=== PATIENT | female | born 1955 | race Caucasian/White ===

== ENCOUNTER → 2018-09-13 | Outpatient (CLI) | payer MEDICARE, OTHER ==
[~2018-09-13] VITALS: Ht 157.5 cm; Wt 85.7 kg
[~2018-09-13] MED LIST: ALLO100T GT; CATHETER FLUSH 10 ML SYR IV PRN; CEFU250T PO; CIPR500T78 PO; DILT120C PO; DILT120C17 PO; DILT240C87 PO; FAMC250T2 PO; HYDR12.570 PO; HYDR25TA4 PO; HYOS0.1216 PO; LISI2.5T56 PO; LISI2.5T85 PO; MELO-195 PO; NITR-33 PO; ONDA-42 SL; OXYC-12 PO; PHEN-640 PO; PHEN200T27 PO; POTA10TA17 PO; POTA2TAB15 PO; PRAV40TA PO; PRED10TA PO; REGADENOSON 0.4 MG/5 ML SYR (LEXISCAN) IV ONE
[2018-09-13 11:27] LABS: BASOPHILS % (AUTO) 0 % (0-10); EOSINOPHILS % (AUTO) 0 % (0-10); HEMATOCRIT 42 % (35-52); HEMOGLOBIN 13.9 G/DL (11.5-16.0); LYMPHOCYTES # (AUTO) 2.9 X 10^3 (1.0-4.0); LYMPHOCYTES % (AUTO) 27 % (12-44); MEAN CORPUSCULAR HEMOGLOBIN 30 PG (25-34); MEAN CORPUSCULAR HGB CONC 33 G/DL (32-36); MEAN CORPUSCULAR VOLUME 90 FL (80-99); MEAN PLATELET VOLUME 10.6 FL (7.4-10.4); MONOCYTES # (AUTO) 0.7 X 10^3 (0.0-1.0); MONOCYTES % (AUTO) 7 % (0-12); NEUTROPHILS # (AUTO) 7.1 X 10^3 (1.8-7.8); NEUTROPHILS % (AUTO) 66 % (42-75); PLATELET COUNT 226 10^3/uL (130-400); RED BLOOD COUNT 4.71 10^6/uL (4.35-5.85); RED CELL DISTRIBUTION WIDTH 13.9 % (10.0-14.5); WHITE BLOOD COUNT 10.8 10^3/uL (4.3-11.0)
[2018-09-13 11:50] LABS: ALBUMIN 4.5 GM/DL (3.2-4.5); BILIRUBIN,TOTAL 0.6 MG/DL (0.1-1.0); CALCIUM 9.6 MG/DL (8.5-10.1); CREATININE SERUM 1.08 MG/DL (0.60-1.30); MAGNESIUM 2.4 MG/DL (1.8-2.4); POTASSIUM 3.8 MMOL/L (3.6-5.0); TOTAL PROTEIN 7.1 GM/DL (6.4-8.2)
[2018-09-13 12:03] LABS: ERYTHROCYTE SEDIMENTATION RATE 4 MM/HR (0-30)
[2018-09-13 13:17] VITALS: BP 152/103
[2018-09-13 13:23] VITALS: BP 159/107
--- NOTE | 2018-09-14 09:09 | STRESS TEST ---
DATE OF SERVICE: 09/13/2018 RESTING AND POST REGADENOSON TECHNETIUM-99M TETROFOSMIN SPECT CT IMAGING ORDERING PHYSICIAN: Dr. Lieberman. FAMILY PHYSICIAN: Dr. Preston. CLINICAL DIAGNOSIS: Chest discomfort. Baseline images were carried out after injection of 10.14 mCi of technetium-99 Tetrofosmin. This was followed by 0.4 mg regadenoson and 28.4 mCi technetium-99m Tetrofosmin for stress imaging. The electrocardiogram showed sinus rhythm at baseline and it did not change significantly with the regadenoson infusion. The patient noted some headache, abdominal discomfort and heaviness in her legs following regadenoson infusion. These symptoms resolved in a few minutes. Review of images at rest and following stress indicates a small transient apical perfusion defect. Gated images show normal global left ventricular systolic function with normal regional wall motion. Left ventricular ejection fraction is calculated to be 64%. Left ventricular end diastolic volume is 34 mL. TID is absent (0.86). CONCLUSIONS: 1. The study is indicative of a small amount of apical ischemia. 2. Normal regional wall motion. 3. Normal global left ventricular systolic function with a calculated ejection fraction of 64%. Job ID: [id number] DocumentID: [id number] Dictated Date: 09/14/2018 08:33:48 Head Grower Date: 09/14/2018 09:09:23 Dictated By: DEBBIE LIEBERMAN MD, MA, FACP, FACC,
== END ==
LOC: RAD 10:43
PROVIDERS: ATTEND Internal Medicine Cardiovascular Disease
DX: I12.9 Hypertensive chronic kidney disease with stage 1 through stage 4 chronic kidney disease, or unspecified chronic kidney disease (principal); N18.3 Chronic kidney disease, stage 3 (moderate); I70.213 Atherosclerosis of native arteries of extremities with intermittent claudication, bilateral legs; E78.49 Other hyperlipidemia; R06.02 Shortness of breath; R07.89 Other chest pain
CPT/HCPCS: 36415; 78452; 80053; 80061; 83735; 84443; 85025; 85652; 93017; 93923

== ENCOUNTER 2018-10-04 07:02 | Day surgery (SDC) | payer MEDICARE, OTHER ==
[~2018-10-04] VITALS: Ht 157.5 cm; Wt 86.2 kg
[2018-10-04] VITALS (11 sets, daily range): BP systolic 131–172; BP diastolic 68–89
[~2018-10-04 07:02] MED LIST changes: -CATHETER FLUSH 10 ML SYR IV PRN; -REGADENOSON 0.4 MG/5 ML SYR (LEXISCAN) IV ONE
--- OUTSIDE RECORDS SUMMARY | 2018-10-04 07:05 | XMS REPORT ---
Author Author RUSS MENESES [facility] eClinicalWorks Address Unknown Phone Unavailable Care Team Providers Care Appliance Repairer Name Role Phone RUSS MENESES CP Unavailable Allergies No Known Allergies Problems Problem Type Condition Code Onset Dates Condition Status Problem Diseases of tricuspid valve 397.0 Active Problem Benign paroxysmal positional vertigo 386.11 Active Problem Cardiomegaly 429.3 Active Problem Chest discomfort 786.59 Active Problem Special screening examination, human papillomavirus [HPV] V73.81 Active Problem Hyperlipemia 272.4 Active Problem Hypertension 401.9 Active Problem Benign neoplasm of skin of other and unspecified parts of face 216.3 Active Problem Other follow-up examination V67.59 Active Problem Unspecified essential hypertension 401.9 Active Problem Other and unspecified hyperlipidemia 272.4 Active Problem Benign neoplasm of skin, site unspecified 216.9 Active Problem Other specified disorders of liver 573.8 Active Problem Screening for malignant neoplasm of the cervix V76.2 Active Problem Unspecified breast screening V76.10 Active Problem Actinic keratosis 702.0 Active Problem Acute bronchitis 466.0 Active Problem Special screening for malignant neoplasms, colon V76.51 Active Problem Acute maxillary sinusitis 461.0 Active Problem Nonspecific abnormal electrocardiogram (ECG) (EKG) 794.31 Active Problem Mitral valve disorders 424.0 Active Medications No Known Medications Results No Known Results Summary Purpose eClinicalWorks Submission
[2018-10-04] MEDS ORDERED: LIDOCAINE 1% INJ 20 ML 20 ML VIAL ONE (07:06)
--- OUTSIDE RECORDS SUMMARY | 2018-10-04 07:06 | XMS REPORT ---
Author Author VERNA BARTH [facility] eClinicalWorks Address Unknown Phone Unavailable Care Team Providers Care Automation Software Engineer Name Role Phone VERNA BARTH CP Unavailable Allergies, Adverse Reactions, Alerts Substance Reaction Event Type Tramadol HCl nausea Drug Allergy Problems Problem Type Condition Code Onset Dates Condition Status Problem Acute maxillary sinusitis 461.0 Active Assessment History of kidney stones Z87.442 Active Problem Mitral valve disorders 424.0 Active Assessment Acute left flank pain R10.9 Active Problem Diseases of tricuspid valve 397.0 Active Problem Benign paroxysmal positional vertigo 386.11 Active Problem Cardiomegaly 429.3 Active Problem Chest discomfort 786.59 Active Problem Hyperlipemia 272.4 Active Problem Special screening examination, human papillomavirus [HPV] V73.81 Active Assessment Insect bites W57.XXXA Active Problem Hypertension 401.9 Active Assessment Tinea pedis B35.3 Active Problem Benign neoplasm of skin of [...] for malignant neoplasms, colon V76.51 Active Problem Nonspecific abnormal electrocardiogram (ECG) (EKG) 794.31 Active Medications Medication Code System Code Instructions Start Date End Date Status Dosage Lisinopril [facility] [address]-63 2.5 MG Orally Once a day 1 tablet Cardizem CD [facility] [address]-34 120 MG Orally Once a day May 01, 2015 1 capsule PredniSONE [facility] [address]-62 40 mg Orally Once a day Aug 30, 2015 Sep 04, 2015 1 tablet with food or milk Procedures Procedure Coding System Code Date URINALYSIS, AUTO, W/O SCOPE CPT-4 30837 Aug 30, 2015 Office Visit, Est Pt., Level 3 CPT-4 70785 Aug 30, 2015 Vital Signs Date/Time: Aug 30, 2015 Temperature 97.4 F Weight 167 lbs Height 62 in BMI 30.54 Index Blood Pressure Diastolic 72 mmHg Blood Pressure Systolic 130 mmHg Cardiac Monitoring Heart Rate 80 bpm Results No Known Results Summary Purpose eClinicalWorks Submission
[2018-10-04] MEDS ORDERED: NS IV 1000 ML 1,000 ML ONE ×2 (07:07→10:01)
[2018-10-04] MEDS ORDERED: HEParin (CATH LAB) 2,000 ML IV ONE (07:07)
[2018-10-04 07:48] LABS: HEMOGLOBIN 13.1 G/DL (11.5-16.0); MEAN PLATELET VOLUME 10.5 FL (7.4-10.4); RED BLOOD COUNT 4.32 10^6/uL (4.35-5.85); RED CELL DISTRIBUTION WIDTH 14.1 % (10.0-14.5); WHITE BLOOD COUNT 5.7 10^3/uL (4.3-11.0)
[2018-10-04] MEDS: NS IV 1000 ML 1,000 ML IV SCH ×2 (07:56→10:21)
[2018-10-04 08:06] LABS: ALBUMIN 4.2 GM/DL (3.2-4.5); BILIRUBIN,TOTAL 0.4 MG/DL (0.1-1.0); CALCIUM 9.1 MG/DL (8.5-10.1); CREATININE SERUM 1.04 MG/DL (0.60-1.30); POTASSIUM 4.1 MMOL/L (3.6-5.0); TOTAL PROTEIN 6.7 GM/DL (6.4-8.2)
[2018-10-04 08:11] LABS: INR 0.9 (0.8-1.4); PROTHROMBIN TIME PATIENT 12.6 SEC (12.2-14.7)
[2018-10-04] MEDS ORDERED: CARV25TA PO (08:24)
[2018-10-04] MEDS ORDERED: ASPI-586 PO (08:24)
[2018-10-04] MEDS ORDERED: DILT240C87 PO (08:25)
[2018-10-04] MEDS ORDERED: LISI40TA PO (08:25)
[2018-10-04] MEDS ORDERED: CHOL400T29 PO (08:26)
[2018-10-04] MEDS ORDERED: FLU QUADRIvalent (5+ YOA) 2018-2019 (AFLURIA) 0.5 ML IM ONE (08:30)
[2018-10-04] MEDS ORDERED: MIDAZOLAM 5 MG/5 ML (VERSED) VIAL ONE (09:40)
[2018-10-04] MEDS ORDERED: fentaNYL INJECTION 100 MCG/2 ML AMP ONE (09:40)
--- NOTE | 2018-10-04 10:14 | Cardiac Procedure Note-CS/ASA ---
Pre-Procedure Note Pre-Op Procedure Note H&P Reviewed The H&P was reviewed, patient examined and no changes noted. Date H&P Reviewed: Oct 04, 2018 Time H&P Reviewed: 10:14 Conscious Sedation Pre-Proced Time 10:14 ASA Score 3 For ASA 3 and 4: Consider anesthesia and medical clearance. Also, for patients with a history of failed moderate sedation consider anesthesia. Airway Lungs Heart ASA score ASA 1: a normal healthy patient ASA 2: a patient with a mild systemic disease (mid diabetes, controlled hypertension, obesity ASA 3: a patient with a severe systemic disease that limits activity (angina , COPD, prior Myocardial infarction) ASA 4: a patient with an incapacitating disease that is a constant threat to life (CHF, renal failure) ASA 5: a moribund patient not expected to survive 24 hrs. (ruptured aneurysm) ASA 6: a declared brain patient whose organs are being harvested. For emergent operations, add the letter E after the classification Mallampati Classification Grade 2 Sedation Plan Analgesia, Amnesia, Plan communicated to team members, Discussed options with patient/fam, Discussed risks with patient/fam The patient is an appropriate candidate to undergo the planned procedure, sedation, and anesthesia. The patient immediately re-assessed prior to indication. DEBBIE JAMISON MD FACP FAC CCDS Oct 04, 2018 10:14
[2018-10-04] MEDS ORDERED: NS IV 1000 ML 1,000 ML IV SCH (10:33)
--- NOTE | 2018-10-04 10:36 | Discharge Inst-Post CATH ---
Discharge Inst-CATH Post Cardiac Cath D/C Inst Follow Up/Plan F/u with Dr Lieberman in 2 weeks CARDIAC CATH DISCHARGE INSTRUCTIONS *Hold Metformin for 48 hours post heart cath. ACTIVITY * Go Home directly and rest. * Limit activity of the leg (or wrist if it was used) for 7 days including aerobics, swimming, jogging, bicycling, etc. * Restrict stair-climbing for 7 days if possible, if not, climb up with your non -cath leg, then bring together on the same step. * Avoid lifting, pushing, pulling or excessive movement of the affected extremity for 7 days. * Customary sexual activity may be resumed after 2 days-use caution not to use a position that strains or causes pain to the affected extremity. * No driving for 24 hours. * NO SMOKING. * Avoid straining for bowel movements for 7 days. * Gentle walking on level ground is allowed. * Returning to work will depend on the type of procedure and the results. Your doctor will discuss this with you. CALL YOUR DOCTOR FOR ANY OF THE FOLLOWING: *If bleeding from the puncture site occurs- Apply gentle pressure to site with clean cloth and call your doctor or EMS. * If a knot or lump forms under the skin, increases in size, or causes pain. * If bruising appears to be worsening or moving further down your leg instead of disappearing. * Temperature above 101 F. CARE OF YOUR GROIN INCISION; * Bruising or purple discoloration of the skin near the puncture site is common. * You may shower only, no bathtub bathing for 5 days. Be careful to avoid slipping as your leg may feel stiff. * If a closure device was used on your femoral artery, please see the attached guide regarding care of the device and your leg. * Leave the dressing on, until removed by office staff. CARE OF YOUR WRIST INCISION; * Bruising or purple discoloration of the skin near the puncture site is common. * You may shower. * DO NOT submerge wrist. * Leave dressing on, until removed by office staff.. DEBBIE LIEBERMAN MD [facility] CCDS Oct 04, 2018 10:36
--- NOTE | 2018-10-04 10:36 | Discharge Inst-Cardiology ---
Discharge Inst-Cardiac Discharge Medications Continued Medications: Aspirin (Aspir 81) 81 Mg Tablet.dr 81 MG PO DAILY, TAB Carvedilol (Carvedilol) 25 Mg Tablet 25 MG PO DAILY, TAB Cholecalciferol (Vitamin D3) (Vitamin D-400) 400 Unit Tablet 400 UNIT PO DAILY, TAB Diltiazem HCl (Diltiazem ER) 240 Mg Capsule.er 240 MG PO DAILY, CAP Lisinopril (Lisinopril) 40 Mg Tablet 40 MG PO DAILY, TAB Orders-Post D/C & Referrals Pneu Vac Indicated: Yes DEBBIE JAMISON MD FACP FACC CCDS Oct 04, 2018 10:36
[2018-10-04] MEDS ORDERED: PATIENT MAY USE OWN MEDS, ALL PO SCH (10:45)
--- NOTE | 2018-10-04 13:20 | CARDIAC CATHETERIZATION ---
DATE OF SERVICE: 10/04/2018 CARDIAC CATHETERIZATION REPORT The patient is a 63-year-old lady, who has multiple coronary artery disease risk factors and has symptoms of chest discomfort and loss of stamina, who has had an abnormal myocardial perfusion study that indicated apical ischemia. Cardiac catheterization was carried out today after having obtained an informed consent. PROCEDURE: She was brought to the cardiac catheterization laboratory in a fasting state. Right groin was prepared and draped in the usual sterile fashion. Lidocaine 1% was used for local anesthesia. Modified Seldinger technique used to advance a 5-Romanian sheath in the right femoral artery. Angiography of the right femoral artery was carried out through the sheath. A 5-Romanian JL4 catheter was used for right coronary angiography and 5-Romanian JL3.5 catheter was used for left coronary angiography. A 5-Romanian pigtail catheter was used for left heart catheterization and left ventricular angiography. The pigtail was pulled back to the aortic arch and aortic arch angiography was performed. Diagnostic catheters were removed. Mynx was used to achieve hemostasis. She tolerated the procedure well. HEMODYNAMICS: Left ventricular end-diastolic pressure following coronary angiography was 12 mmHg. There was no significant pressure gradient on pullback across the aortic valve. Ascending aortic pressure is 97/56 with a mean of 58 mmHg. CORONARY ANGIOGRAPHY: Left main coronary, left circumflex, left anterior descending, right coronary artery are all angiographically free of any significant disease. Right coronary artery is dominant. LEFT VENTRICULAR ANGIOGRAPHY: Left ventricular angiography was carried out in the right anterior oblique projection. Global left ventricular systolic function was normal. No regional wall motion abnormalities were seen. There does not appear to be significant mitral regurgitation. Left ventricular ejection fraction is approximately 60%. AORTIC ARCH ANGIOGRAPHY: Aortic arch angiography did not indicate any significant thoracic aortic aneurysm or dissection. Neck arteries, to the extent visualized, do not exhibit significant obstructive disease. CONCLUSIONS: 1. No angiographically significant coronary artery disease. 2. Normal global left ventricular systolic function with an ejection fraction of 60%. 3. Normal left ventricular end-diastolic pressure. DISCUSSION AND RECOMMENDATIONS: Based on the results of the study, chest discomfort does not appear to be of cardiac origin. Myocardial perfusion imaging appears to have been false positive. Continued risk factor modification is advised. Outpatient followup is advised. Job ID: [id number] DocumentID: [id number] Dictated Date: 10/04/2018 10:30:39 Electric Motor Controls Assembler Date: 10/04/2018 13:20:08 Dictated By: DEBBIE JAMISON MD, MA, FACP, FACC,
== END 2018-10-04 14:02 | disposition home or self-care (01) ==
LOC: CATH 07:02 → SDC 10:52 → CATH 14:02
PROVIDERS: ATTEND Internal Medicine Cardiovascular Disease
DX: R07.9 Chest pain, unspecified (principal); Z79.899 Other long term (current) drug therapy; Z79.82 Long term (current) use of aspirin; I10 Essential (primary) hypertension; E78.5 Hyperlipidemia, unspecified; E66.9 Obesity, unspecified; Z68.35 Body mass index [BMI] 35.0-35.9, adult
CPT/HCPCS: 36221; 36415; 80053; 80061; 85027; 85610; 85730; 87081; 93458

== ENCOUNTER → 2018-10-06 | Outpatient (CLI) | payer MEDICARE, OTHER ==
[~2018-10-06] MED LIST changes: +ASPI-586 PO; +CARV25TA PO; +CHOL400T29 PO; +LISI40TA PO
== END ==
LOC: CARD 13:59
PROVIDERS: ATTEND Internal Medicine Cardiovascular Disease
DX: R07.89 Other chest pain (principal); I12.9 Hypertensive chronic kidney disease with stage 1 through stage 4 chronic kidney disease, or unspecified chronic kidney disease; E78.5 Hyperlipidemia, unspecified; N18.3 Chronic kidney disease, stage 3 (moderate); R06.02 Shortness of breath; I70.213 Atherosclerosis of native arteries of extremities with intermittent claudication, bilateral legs; I08.0 Rheumatic disorders of both mitral and aortic valves
CPT/HCPCS: 93306

== ENCOUNTER 2020-06-27 13:06 | Emergency (ER) | payer MEDICARE, OTHER ==
[~2020-06-27] VITALS: Ht 157.5 cm; Wt 83.9 kg
[2020-06-27 13:18] VITALS: BP 143/91
--- NOTE | 2020-06-27 14:11 | ED Upper Extremity ---
General Chief Complaint: Upper Extremity Stated Complaint: LUMP ON ELBOW Nursing Triage Note: PT AMB TO TRIAGE WITH COMPLAINT OF KNOT ON RIGHT ELBOW. STATES NOTICED IT TODAY WHEN SHE SAT HER ELBOW ON THE CONSOLE OF CAR. Nursing Sepsis Screen: No Definite Risk (THOMAS LAIRD) History of Present Illness Date Seen by Provider: Jun 27, 2020 Time Seen by Provider: 13:26 Initial Comments This is a 65 who presents to the ED with "2-3 day" hx of focal swelling to R elbow. States the lesion started as a small nodule on extensor surface of her elbow but today she notice it was numb and more swollen after she sat her arm down on the console of her car. Denies F, chills, myalgias, or any other sx. Denies reduction in AROM or pain w/ movement of elbow. Denies any recent hx of lacerations/abrasions, bites, puncture, or stings to that area. Denies exposure to any thorny, or poisonous plants. Denies any recent falls. Is not on blood thinners. Denies hx of gout. Pt has hx of CKD and does not take NSAIDs. Onset: other (3days ago) Severity: mild Pain/Injury Location: right elbow Method of Injury: other (none) Modifying Factors: Improves With Other (none) (THOMAS LAIRD) Severity: mild Pain/Injury Location: right elbow Method of Injury: other (none) Modifying Factors: Improves With Other (none) (CARMEN ALVARENGA MD) Allergies and Home Medications Allergies Coded Allergies: tramadol (Verified Adverse Reaction, Mild, N/V, 05/14/15) Home Medications Aspirin 81 Mg Tablet.dr, 81 MG PO DAILY, (Reported) Carvedilol 25 Mg Tablet, 25 MG PO DAILY, (Reported) Cholecalciferol (Vitamin D3) 400 Unit Tablet, 400 UNIT PO DAILY, (Reported) Diltiazem HCl 240 Mg Capsule.er, 240 MG PO DAILY, (Reported) Lisinopril 40 Mg Tablet, 40 MG PO DAILY, (Reported) Patient Home Medication List Home Medication List Reviewed: Yes (CARMEN ALVARENGA MD) Review of Systems Constitutional: No chills, No fever, No malaise, No weakness Respiratory: no symptoms reported Cardiovascular: no symptoms reported Musculoskeletal: joint swelling (R elbow swelling); No muscle pain Skin: No change in color, No pruritus, No rash (THOMAS LAIRD) Constitutional: No chills, No fever Respiratory: no symptoms reported Cardiovascular: no symptoms reported Musculoskeletal: No joint pain; joint swelling (R elbow swelling); No muscle pain Skin: No change in color; lumps (CARMEN ALVARENGA MD) Past Pcunepv-Pzylfw-Hrucjx Hx Past Med/Social Hx: Reviewed Nursing Past Med/Soc Hx (CARMEN ALVARENGA MD) Patient Social History Alcohol Use: Regular Use Alcohol Beverage of Choice: Beer Recreational Drug Use: No Smoking Status: Former Smoker Recent Foreign Travel: No Contact w/Someone Who Travel: No Recent Infectious Disease Expo: No (THOMAS LAIRD) Immunizations Up To Date Tetanus Booster (TDap): Unknown PED Vaccines UTD: Yes (THOMAS LAIRD) Seasonal Allergies Seasonal Allergies: No (THOMAS LAIRD) Past Medical History Appendectomy, Tubal Ligation Hypertension Reproductive Disorders: No BOTTLE TESTER History: Tubal Ligation Kidney Stones (THOMAS LAIRD) Family Medical History Reviewed Nursing Family Hx (CARMEN ALVARENGA MD) Completed stroke 19 MOTHER Diabetes mellitus 19 FATHER 19 MOTHER Physical Exam Vital Signs Vital Signs - First Documented 06/27/20 13:18 Temp 36.9 Pulse 61 Resp 20 B/P (MAP) 143/91 (108) Pulse Ox 97 O2 Delivery Room Air (CARMEN ALVARENGA MD) Vital Signs Capillary Refill : Less Than 3 Seconds (THOMAS LAIRD) Height, Weight, BMI Height: 5'2.00" Weight: 190lbs. 0.0oz. 86.032904kr; 33.00 BMI Method:Stated General Appearance: WD/WN, no apparent distress Cardiovascular: normal peripheral pulses, regular rate, rhythm Respiratory: chest non-tender, lungs clear, normal breath sounds Shoulder: normal inspection, non-tender Elbow/Forearm: non-tender, normal ROM, swelling (there is a ping pong ball- sized localized swelling over extensor surface of R elbow. swelling does not extend up or down length of arm, there is no R elbow: erythema, there is no evidence of disturbance to skin barrier, no sign of infection; R elbow does feel mildly warmer compared to L. No pain w/ ROM. sensation and pulse is intact bilaterally) Wrist: Yes normal inspection, Yes non-tender Hand: normal inspection, non-tender Neurologic/Tendon: normal sensation, normal motor functions, normal tendon functions Neurologic/Psychiatric: alert, oriented x 3 Skin: normal color, warm/dry (THOMAS LAIRD [facility]) General Appearance: WD/WN, no apparent distress Cardiovascular: regular rate, rhythm, no murmur Respiratory: lungs clear, normal breath sounds Elbow/Forearm: normal ROM, Right, swelling (there is a ping pong ball-sized localized swelling over extensor surface of R elbow. swelling does not extend up or down length of arm, there is no R elbow: erythema, there is no evidence of disturbance to skin barrier, no sign of infection; R elbow does feel mildly warmer compared to L. No pain w/ ROM. sensation and pulse is intact bilaterally) Neurologic/Psychiatric: alert, oriented x 3 Skin: normal color, warm/dry (CARMEN ALVARENGA MD) Progress/Results/Core Measures Results/Orders Vital Signs/I&O 06/27/20 13:18 Temp 36.9 Pulse 61 Resp 20 B/P (MAP) 143/91 (108) Pulse Ox 97 O2 Delivery Room Air (CARMEN ALVARENGA MD) Blood Pressure Mean: 108 Progress Progress Note : Progress Note I have seen and evaluated the patient and agree with above except as indicated. I have directed the plan of care. Patient is here with swelling of the bursa of the right elbow. No recent injury. No recent wounds. Has not had this happen before. Admits that she did have been packing approximately 80 bags of groceries last week. Noticed swelling this morning. No limitations of movement. No indication of infected area and seems to be located just in the posterior bursa. I did discuss multiple options with the patient including further evaluation versus conservative management. We all agree that conservative management is a reasonable approach at this point. Ice pack given. Discharged home with return precautions. Patient verbalize understanding instructions and agreement with plan. Patient will return if there is any increase in swelling, pain or signs of inflammation to indicate infection or other concerns as needed. (CARMEN ALVARENGA MD) Departure Impression Primary Impression: Bursitis of right elbow Qualified Codes: M70.31 - Other bursitis of elbow, right elbow Disposition: 01 HOME, SELF-CARE Condition: Stable Departure-Patient Inst. Decision time for Depature: 14:19 (CARMEN ALVARENGA MD) Referrals: TK GÓMEZ DO (PCP/Family) Primary Care Physician Patient Instructions: Bursitis (DC) Add. Discharge Instructions: All discharge instructions reviewed with patient and/or family. Voiced understanding. You may use ice packs to area concern 20 minutes per hour as needed to reduce swelling. Rest the arm and elevate as needed to reduce swelling. You may take Tylenol/acetaminophen 1000 mg every 6-8 hours as needed for pain. Return for worse pain, swelling, redness, fever, red streaks or other concerns as needed. THOMAS LAIRD MED STUD Jun 27, 2020 14:11 CARMEN ALVARENGA MD Jun 27, 2020 14:23
== END 2020-06-27 14:29 | disposition home or self-care (01) ==
LOC: EDUNIT# 13:06 → ER 13:09
DX: M70.31 Other bursitis of elbow, right elbow (principal); I12.9 Hypertensive chronic kidney disease with stage 1 through stage 4 chronic kidney disease, or unspecified chronic kidney disease; N18.9 Chronic kidney disease, unspecified; Z88.5 Allergy status to narcotic agent; Z79.82 Long term (current) use of aspirin; Z87.891 Personal history of nicotine dependence
CPT/HCPCS: 99282

== ENCOUNTER → 2020-07-24 | Outpatient (CLI) | payer MEDICARE, OTHER | LOC: CARD 13:00 | PROVIDERS: ATTEND Internal Medicine Cardiovascular Disease | DX: I25.10 Atherosclerotic heart disease of native coronary artery without angina pectoris (principal); I12.9 Hypertensive chronic kidney disease with stage 1 through stage 4 chronic kidney disease, or unspecified chronic kidney disease; N18.3 Chronic kidney disease, stage 3 (moderate); I34.0 Nonrheumatic mitral (valve) insufficiency; I77.89 Other specified disorders of arteries and arterioles; I47.1 Supraventricular tachycardia; R00.2 Palpitations; E78.5 Hyperlipidemia, unspecified | CPT/HCPCS: 93225; 93226; 93306 ==

== ENCOUNTER → 2020-09-10 | Outpatient (CLI) | payer MEDICARE, OTHER ==
[~2020-09-10] MED LIST changes: +CATHETER FLUSH 10 ML SYR IV PRN; +HOLD METFORMIN - RECEIVED CONTRAST 20 ML VIAL IV SCH; +IOHEXOL 350 MG/ML 100 ML (OMNIPAQUE 350) VIAL IV ONE; +NS 100 ML (IVPB) BAG IV ONE; +NS IV 1000 ML 1,000 ML IV SCH; +NS IV 1000 ML 1,000 ML ONE
[2020-09-10 09:55] VITALS: BP 148/94
[2020-09-10 13:39] LABS: CREATININE SERUM 0.88 MG/DL (0.60-1.30)
--- NOTE | 2020-09-10 15:57 | Diagnostic Imaging Report ---
PROCEDURE: CT abdomen with contrast only. TECHNIQUE: Multiple contiguous axial images were obtained through the abdomen after the administration of intravenous contrast. Auto Exposure Controls were utilized during the CT exam to meet ALARA standards for radiation dose reduction. INDICATION: Liver cyst. COMPARISON: Correlation is made with prior CT from 09/24/2015. FINDINGS: The lung bases are clear. Previously noted dominant right lobe liver cyst has significantly decreased in size, now measuring approximately 1.7 cm compared with 10.1 cm on prior exam. A 2.3 cm cyst in the inferior right lobe is noted compared with 2.0 cm on prior exam. A third cyst more inferiorly in the right lobe measures 2.5 cm compared with 2.1 cm on prior. Gallbladder is unremarkable. No biliary ductal dilatation is seen. The pancreas and spleen are unremarkable. No adrenal mass is detected. Kidneys are unremarkable. Aorta is nonaneurysmal. No central retroperitoneal or mesenteric lymphadenopathy is detected. Bowel loops are unremarkable. There is no ascites. IMPRESSION: Significant decrease in size of dominant right lobe liver cyst when compared with examination from 09/24/2015. Dictated by: Dictated on workstation # [id number]
== END ==
LOC: RAD 09:43
PROVIDERS: ATTEND Nurse Practitioner
DX: Z01.812 Encounter for preprocedural laboratory examination (principal); K76.89 Other specified diseases of liver
CPT/HCPCS: 36415; 74160; 82565; 84520; 96360; 96361

== ENCOUNTER 2022-10-15 19:54 | Emergency (ER) | payer MEDICARE, OTHER ==
[~2022-10-15] VITALS: Ht 157.5 cm; Wt 89.8 kg
[~2022-10-15 19:54] MED LIST changes: -CATHETER FLUSH 10 ML SYR IV PRN; -HOLD METFORMIN - RECEIVED CONTRAST 20 ML VIAL IV SCH; -IOHEXOL 350 MG/ML 100 ML (OMNIPAQUE 350) VIAL IV ONE; -LISI40TA PO; +LISI40TA9 PO; -NS 100 ML (IVPB) BAG IV ONE; -NS IV 1000 ML 1,000 ML IV SCH; -NS IV 1000 ML 1,000 ML ONE
--- NOTE | 2022-10-15 20:09 | ED Chest Pain ---
General Chief Complaint: Cardiac/General Problems Stated Complaint: CHEST DISCOMFORT, TIGHTNESS Source: patient Exam Limitations: no limitations History of Present Illness Date Seen by Provider: Oct 15, 2022 Time Seen by Provider: 20:05 Initial Comments Patient is a 67-year-old female who presents to the emergency department for evaluation of chest pain that began earlier today. She states the pain initially was left-sided and more severe. She states over the last several hours it has been less severe. She states she did take some antacid which seemed to help the pain some. States she is also had some belching today. Denies any nausea/vomiting. Denies any significant shortness of air, diaphoresis, or dependent edema. Patient states she has had a coronary angiogram in the past but there were no stents placed. Denies any other sig nificant cardiac history outside of hypertension. Allergies and Home Medications Allergies Coded Allergies: tramadol (Verified Adverse Reaction, Mild, N/V, 05/14/15) Patient Home Medication List Home Medication List Reviewed: Yes Aspirin (Aspir 81) 81 Mg Tablet.dr, 81 MG PO DAILY, (Reported) Entered as Reported by: CHRIS HAMMOND on 10/04/18823 Carvedilol (Carvedilol) 25 Mg Tablet, 25 MG PO DAILY, (Reported) Entered as Reported by: CHRIS HAMMOND on 10/04/18823 Cholecalciferol (Vitamin D3) (Vitamin D-400) 400 Unit Tablet, 400 UNIT PO DAILY, (Reported) Entered as Reported by: CHRIS HAMMOND on 10/04/18825 Diltiazem HCl (Diltiazem ER) 240 Mg Capsule.er, 240 MG PO DAILY, (Reported) Entered as Reported by: CHRIS HAMMOND on 10/04/18824 Lisinopril (Lisinopril) 40 Mg Tablet, 40 MG PO DAILY, (Reported) Entered as Reported by: CHRIS HAMMOND on 10/04/18824 Review of Systems Review of Systems Constitutional: no symptoms reported EENTM: No Symptoms Reported Respiratory: No Symptoms Reported Cardiovascular: See HPI, Chest Pain Gastrointestinal: No Symptoms Reported Genitourinary: No Symptoms Reported Musculoskeletal: no symptoms reported Skin: no symptoms reported Psychiatric/Neurological: No Symptoms Reported Endocrine: No Symptoms Reported Hematologic/Lymphatic: No Symptoms Reported Past Yiczapt-Xnfydv-Ozamzq Hx Immunizations Up To Date Tetanus Booster (TDap): Unknown PED Vaccines UTD: Yes Seasonal Allergies Seasonal Allergies: No Past Medical History Appendectomy, Tubal Ligation Hypertension Reproductive Disorders: No 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 0.0oz. 86.278908my; 33.00 BMI Method:Stated General Appearance: No Apparent Distress, WD/WN HEENT: PERRL/EOMI, TMs Normal, Normal ENT Inspection, Pharynx Normal Neck: Full Range of Motion, Normal Inspection, Non Tender, Supple Respiratory: Chest Non Tender, Lungs Clear, Normal Breath Sounds, No Accessory Muscle Use, No Respiratory Distress Cardiovascular: Regular Rate, Rhythm Gastrointestinal: Non Tender, Soft Neurologic/Psychiatric: Alert, Oriented x3, No Motor/Sensory Deficits, Normal Mood/Affect, director of distribution II-XII Norm as Tested Progress/Results/Core Measures Results/Orders Lab Results Laboratory Tests Test 10/15/22 20:08 Range/Units White Blood Count 10.9 4.3-11.0 10^3/uL Red Blood Count 5.04 3.80-5.11 10^6/uL Hemoglobin 14.9 11.5-16.0 g/dL Hematocrit 45 35-52 % Mean Corpuscular Volume 89 80-99 fL Mean Corpuscular Hemoglobin 30 25-34 pg Mean Corpuscular Hemoglobin Concent 33 32-36 g/dL Red Cell Distribution Width 12.8 10.0-14.5 % Platelet Count 261 130-400 10^3/uL Mean Platelet Volume 10.4 9.0-12.2 fL Immature Granulocyte % (Auto) 1 % Neutrophils (%) (Auto) 68 42-75 % Lymphocytes (%) (Auto) 24 12-44 % Monocytes (%) (Auto) 6 0-12 % Eosinophils (%) (Auto) 1 0-10 % Basophils (%) (Auto) 1 0-10 % Neutrophils # (Auto) 7.4 1.8-7.8 10^3/uL Lymphocytes # (Auto) 2.6 1.0-4.0 10^3/uL Monocytes # (Auto) 0.6 0.0-1.0 10^3/uL Eosinophils # (Auto) 0.2 0.0-0.3 10^3/uL Basophils # (Auto) 0.1 0.0-0.1 10^3/uL Immature Granulocyte # (Auto) 0.1 0.0-0.1 10^3/uL Prothrombin Time 12.4 12.2-14.7 SEC INR Comment 0.9 0.8-1.4 Activated Partial Thromboplast Time 29 24-35 SEC Sodium Level 140 135-145 MMOL/L Potassium Level 3.6 3.6-5.0 MMOL/L Chloride Level 105 98-107 MMOL/L Carbon Dioxide Level 24 21-32 MMOL/L Anion Gap 11 5-14 MMOL/L Blood Urea Nitrogen 18 7-18 MG/DL Creatinine 0.99 0.60-1.30 MG/DL Estimat Glomerular Filtration Rate 62 BUN/Creatinine Ratio 18 Glucose Level 121 H 70-105 MG/DL Calcium Level 10.4 H 8.5-10.1 MG/DL Corrected Calcium 8.5-10.1 MG/DL Magnesium Level 2.0 1.6-2.4 MG/DL Total Bilirubin 0.4 0.1-1.0 MG/DL Aspartate Amino Transf (AST/SGOT) 19 5-34 U/L Alanine Aminotransferase (ALT/SGPT) 18 0-55 U/L Alkaline Phosphatase 100 40-136 U/L Troponin I < 0.028 <0.028 NG/ML Total Protein 7.6 6.4-8.2 GM/DL Albumin 4.6 H 3.2-4.5 GM/DL My Orders Orders - 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 Cbc With Automated Diff (10/15/22 20:07) Magnesium (10/15/22 20:07) Chest 1 View, Ap/Pa Only (10/15/22 20:07) Ekg Tracing (10/15/22 20:07) Comprehensive Metabolic Panel (10/15/22 20:07) Protime With Inr (10/15/22 20:07) Partial Thromboplastin Time (10/15/22 20:07) O2 (10/15/22 20:07) Monitor-Rhythm Ecg Trace Only (10/15/22 20:07) Lipid Panel (10/16/22 06:00) Ed Iv/Invasive Line Start (10/15/22 20:07) Troponin I [place] (10/15/22 20:07) Aspirin Chewable Tablet (Baby Aspirin Ch (10/15/22 20:15) Vital Signs/I&O 10/15/22 20:02 Temp 35.8 Pulse 103 Resp 18 B/P (MAP) 146/96 (113) Pulse Ox 99 O2 Delivery Room Air Progress Progress Note : Progress Note Patient is nontoxic and well-hydrated on exam. No adventitious lung sounds or increased work of breathing noted. Pain is not reproducible with palpation. Vital signs are reassuring without hypoxia or marked tachycardia. EKG without acute ischemic change or arrhythmia. Laboratory evaluation is reassuring. Specifically there is no elevated troponin. Chest pain is atypical at this time. Low probability of ACS at this time. Discussed importance of close follow-up with PCP. Strict return precautions for urgent symptomology discussed. Patient verbalized understanding Departure Impression Primary Impression: Atypical chest pain Disposition: 01 HOME, SELF-CARE Condition: Stable Departure-Patient Inst. Decision time for Depature: 21:20 Referrals: TK GÓMEZ DO (PCP/Family) Primary Care Physician Patient Instructions: Chest Pain, Adult ED JACQUELINE ORTEGA APRN Oct 15, 2022 20:09
[2022-10-15] MEDS ORDERED: ASPIRIN 81 MG CHEW (CHILDREN'S ASA) PO ONE (20:15)
[2022-10-15 20:27] LABS: ALBUMIN 4.6 GM/DL (3.2-4.5); CHLORIDE 105 MMOL/L (98-107); POTASSIUM 3.6 MMOL/L (3.6-5.0); SODIUM 140 MMOL/L (135-145)
[2022-10-15 20:28] LABS: CALCIUM 10.4 MG/DL (8.5-10.1)
[2022-10-15 20:29] LABS: BASOPHILS # (AUTO) 0.1 10^3/uL (0.0-0.1); BASOPHILS % (AUTO) 1 % (0-10); EOSINOPHILS # (AUTO) 0.2 10^3/uL (0.0-0.3); EOSINOPHILS % (AUTO) 1 % (0-10); GLUCOSE 121 MG/DL (70-105); HEMATOCRIT 45 % (35-52); HEMOGLOBIN 14.9 g/dL (11.5-16.0); LYMPHOCYTES # (AUTO) 2.6 10^3/uL (1.0-4.0); LYMPHOCYTES % (AUTO) 24 % (12-44); MEAN CORPUSCULAR HEMOGLOBIN 30 pg (25-34); MEAN CORPUSCULAR HGB CONC 33 g/dL (32-36); MEAN CORPUSCULAR VOLUME 89 fL (80-99); MEAN PLATELET VOLUME 10.4 fL (9.0-12.2); MONOCYTES # (AUTO) 0.6 10^3/uL (0.0-1.0); MONOCYTES % (AUTO) 6 % (0-12); NEUTROPHILS # (AUTO) 7.4 10^3/uL (1.8-7.8); NEUTROPHILS % (AUTO) 68 % (42-75); PLATELET COUNT 261 10^3/uL (130-400); TOTAL PROTEIN 7.6 GM/DL (6.4-8.2); WHITE BLOOD COUNT 10.9 10^3/uL (4.3-11.0)
[2022-10-15 20:30] LABS: CARBON DIOXIDE 24 MMOL/L (21-32)
[2022-10-15 20:31] LABS: BILIRUBIN,TOTAL 0.4 MG/DL (0.1-1.0)
[2022-10-15 20:33] LABS: ALKALINE PHOSPHATASE 100 U/L (40-136); CREATININE SERUM 0.99 MG/DL (0.60-1.30); GFR ESTIMATED 62
[2022-10-15 20:34] LABS: BUN/CREATININE RATIO 18
--- NOTE | 2022-10-15 20:34 | Diagnostic Imaging Report ---
INDICATION: Chest pain. FINDINGS: The heart size, mediastinal configuration and pulmonary vascularity are within normal limits. There is no pleural effusion, pneumothorax or pneumonia. The osseous structures are unremarkable. IMPRESSION: No acute cardiopulmonary abnormality. Dictated by: Dictated on workstation # [id number]
[2022-10-15 20:36] LABS: ALANINE AMINOTRANSFERASE 18 U/L (0-55)
[2022-10-15 20:46] LABS: INR 0.9 (0.8-1.4); PROTHROMBIN TIME PATIENT 12.4 SEC (12.2-14.7)
[2022-10-15 21:31] VITALS: BP 151/83
== END 2022-10-15 21:28 | disposition home or self-care (01) ==
LOC: EDUNIT# 19:54 → ER 19:56
DX: R07.89 Other chest pain (principal); Z28.311 Partially vaccinated for COVID-19
CPT/HCPCS: 36415; 71045; 80053; 83735; 84484; 85025; 85610; 85730; 93005; 93041

== ENCOUNTER → 2022-11-20 | Outpatient (CLI) | payer MEDICARE, OTHER ==
[2022-11-20 12:04] LABS: ALBUMIN 4.4 GM/DL (3.2-4.5); BILIRUBIN,TOTAL 0.6 MG/DL (0.1-1.0); CALCIUM 9.1 MG/DL (8.5-10.1); CREATININE SERUM 0.91 MG/DL (0.60-1.30); POTASSIUM 4.2 MMOL/L (3.6-5.0)
== END ==
LOC: LAB 11:25
PROVIDERS: ATTEND Internal Medicine Cardiovascular Disease
DX: I65.23 Occlusion and stenosis of bilateral carotid arteries (principal); R00.2 Palpitations; I44.1 Atrioventricular block, second degree; E78.2 Mixed hyperlipidemia; I47.1 Supraventricular tachycardia; I11.9 Hypertensive heart disease without heart failure; I35.1 Nonrheumatic aortic (valve) insufficiency; R07.89 Other chest pain
CPT/HCPCS: 36415; 80053; 80061

== ENCOUNTER → 2023-03-02 | Outpatient (CLI) | payer MEDICARE, OTHER ==
[~2023-03-02] MED LIST changes: +CATHETER FLUSH 10 ML SYR IVP PRN; +REGADENOSON 0.4 MG/5 ML SYR (LEXISCAN) IV ONE
--- NOTE | 2023-03-03 16:38 | STRESS TEST ---
DATE OF SERVICE: 03/02/2023 RESTING AND POST REGADENOSON TECHNETIUM-99M TETROFOSMIN SPECT CT IMAGING ORDERING PHYSICIAN: Sita Connell APRN. PRIMARY PHYSICIAN: Dr. Preston. OTHER PHYSICIAN: Dr. Jamison. CLINICAL DIAGNOSIS: Chest discomfort. Baseline images were carried out after injection of 10.22 mCi of technetium-99m tetrofosmin. This was followed by 0.4 mg regadenoson and 30.4 mCi of technetium-99m tetrofosmin for stress imaging. Electrocardiogram showed sinus rhythm at baseline. It did not change significantly with the regadenoson infusion. The patient did not report any symptoms. Review of images at rest and following stress does not indicate any distinct perfusion defects consistent with significant myocardial ischemia or infarction. Some degree of breast attenuation is seen at rest and somewhat more during resting images. Gated images showed normal global left ventricular systolic function with normal regional wall motion. Left ventricular ejection fraction is calculated to be 67%. CONCLUSIONS: 1. No evidence of any significant myocardial ischemia or infarction on this study. 2. Normal regional wall motion. 3. Normal global left ventricular systolic function with a calculated ejection fraction 67%. Job ID: [id number] DocumentID: [id number] Dictated Date: 03/03/2023 12:50:00 Credit Coordinator Date: 03/03/2023 16:35:00 Dictated By: DEBBIE JAMISON MD; GARY; FACP; FACC;
== END ==
LOC: CARD 08:15
PROVIDERS: ATTEND Nurse Practitioner Family
DX: R07.89 Other chest pain (principal)
CPT/HCPCS: 78452; 93017; A9502

== ENCOUNTER → 2023-03-25 | Outpatient (CLI) | payer MEDICARE, OTHER ==
[~2023-03-25] MED LIST changes: -CATHETER FLUSH 10 ML SYR IVP PRN; -REGADENOSON 0.4 MG/5 ML SYR (LEXISCAN) IV ONE
== END ==
LOC: CARD 11:45
PROVIDERS: ATTEND Nurse Practitioner Family
DX: I35.1 Nonrheumatic aortic (valve) insufficiency (principal)
CPT/HCPCS: 93306

== ENCOUNTER 2023-07-20 17:02 | Emergency (ER) | payer MEDICARE, OTHER ==
[~2023-07-20 17:02] MED LIST changes: +DILT240C74 PO
[2023-07-20] MEDS ORDERED: ANTACID SUSPENSION 30 ML UDC PO ONE (17:15)
[2023-07-20] MEDS ORDERED: LIDOCAINE 2% VISCOUS 15 ML UDC PO ONE (17:15)
[2023-07-20] MEDS ORDERED: ASPIRIN 81 MG CHEWABLE TABLET PO ONE (17:15)
--- NOTE | 2023-07-20 17:19 | ED Chest Pain ---
General Chief Complaint: Chest Pain Stated Complaint: CHEST PAINS, BACK PAINS, NUMBNESS IN FACE Source: patient Exam Limitations: no limitations (SALVATORE NI) History of Present Illness Date Seen by Provider: Jul 20, 2023 Time Seen by Provider: 17:15 Initial Comments Patient is a 68-year-old female with a history of hypertension, hyperlipidemia, GERD presents to ED with left-sided chest pain. This started around 1 PM. Pain is described as burning and radiates across the chest and back. Pain appears to be intermittent. She does report some numbness in the left side of her neck. No shortness of breath, cough, nausea vomit, diarrhea. She thought the pain was indigestion she drank soda pop with no improvement. She reports a history of coronary artery disease without any cardiac stents. She is not on blood thinn ers. She does have a history of hypertension which she takes carvedilol and lisinopril. She is hypertensive on arrival. She denies headache, visual changes, urinary symptoms. She does report some generalized abdominal discomfort. History of cholecystectomy. (SALVATORE NI) Allergies and Home Medications Allergies Coded Allergies: tramadol (Verified Adverse Reaction, Mild, N/V, 05/14/15) Patient Home Medication List Home Medication List Reviewed: Yes (SALVATORE NI) Aspirin (Aspir 81) 81 Mg Tablet.dr, 81 MG PO DAILY, (Reported) Entered as Reported by: CHRIS HAMMOND on 10/04/18823 Carvedilol (Carvedilol) 25 Mg Tablet, 25 MG PO DAILY, (Reported) Entered as Reported by: CHRIS HAMMOND on 10/04/18823 Cholecalciferol (Vitamin D3) (Vitamin D-400) 400 Unit Tablet, 400 UNIT PO DAILY, (Reported) Entered as Reported by: CHRIS HAMMOND on 10/04/18825 Diltiazem HCl (Diltiazem ER) 240 Mg Capsule.er, 240 MG PO DAILY, (Reported) Entered as Reported by: CHRIS HAMMOND on 10/04/18824 Lisinopril (Lisinopril) 40 Mg Tablet, 40 MG PO DAILY, (Reported) Entered as Reported by: CHRIS HAMMOND on 12/4/18 0825 Review of Systems Review of Systems Constitutional: No chills, No diaphoresis, No malaise, No weakness EENTM: No Double Vision, No Eye Pain Respiratory: Denies Cough, Denies Orthopnea, Denies Shortness of Air Cardiovascular: Chest Pain; Denies Edema, Denies Irregular Heart Rate Gastrointestinal: Abdominal Pain; Denies Diarrhea, Denies Vomiting Genitourinary: Denies Burning, Denies Discharge Musculoskeletal: No back pain, No joint pain Skin: No change in color, No change in hair/nails (SALVATORE NI) All Other Systems Reviewed Negative Unless Noted: Yes (SALVATORE NI) Past Mtkzutw-Vecyfj-Cveagl Hx Patient Social History Tobacco Use?: No Substance use?: No Alcohol Use?: Yes Alcohol type: Beer Alcohol Frequency: Couple times a week Pt feels they are or have been: No (SALVATORE NI) Immunizations Up To Date Tetanus Booster (TDap): Unknown PED Vaccines UTD: Yes First/Initial COVID19 Vaccinat: September 2021 Second COVID19 Vaccination [place]: September 2021 Third COVID19 Vaccination Date: September 2021 (SALVATORE NI) Seasonal Allergies Seasonal Allergies: No (SALVATORE NI) Past Medical History Surgery/Hospitalization HX: HTN, HLD HEART CATH, APPY, TUBAL Appendectomy, Tubal Ligation Hypertension Reproductive Disorders: No [employer] History: Tubal Ligation Kidney Stones (SALVATORE NI) Family Medical History Completed stroke 19 MOTHER Diabetes mellitus 19 FATHER 19 MOTHER Physical Exam Vital Signs Vital Signs - First Documented 07/20/23 17:05 Temp 36.3 Pulse 70 Resp 24 B/P (MAP) 204/106 (138) Pulse Ox 96 O2 Delivery Room Air (JAKE KU MD) Vital Signs Capillary Refill : (SALVATORE NI) Height, Weight, BMI Height: 5'2.00" Weight: 190lbs. 0.0oz. 86.686077in; 36.00 BMI Method:Stated General Appearance: No Apparent Distress, WD/WN HEENT: PERRL/EOMI, TMs Normal, Normal ENT Inspection, Pharynx Normal Neck: Full Range of Motion, Normal Inspection, Non Tender, Supple Respiratory: Chest Non Tender, Lungs Clear, Normal Breath Sounds, No Accessory Muscle Use Cardiovascular: Regular Rate, Rhythm, No Edema, No Gallop, No JVD, No Murmur Gastrointestinal: Normal Bowel Sounds, No Organomegaly, No Pulsatile Mass, Tenderness (Right-sided abdominal tenderness. 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 Norm as Tested Skin: Normal Color, Warm/Dry (SALVATORE NI) Progress/Results/Core Measures Results/Orders Lab Results Laboratory Tests Test 07/20/23 17:08 07/20/23 19:30 Range/Units White Blood Count 7.6 4.3-11.0 10^3/uL Red Blood Count 4.52 3.80-5.11 10^6/uL Hemoglobin 13.3 11.5-16.0 g/dL Hematocrit 41 35-52 % Mean Corpuscular Volume 91 80-99 fL Mean Corpuscular Hemoglobin 29 25-34 pg Mean Corpuscular Hemoglobin Concent 32 32-36 g/dL Red Cell Distribution Width 14.1 10.0-14.5 % Platelet Count 179 130-400 10^3/uL Mean Platelet Volume 10.8 9.0-12.2 fL Immature Granulocyte % (Auto) 0 % Neutrophils (%) (Auto) 66 42-75 % Lymphocytes (%) (Auto) 24 12-44 % Monocytes (%) (Auto) 7 0-12 % Eosinophils (%) (Auto) 1 0-10 % Basophils (%) (Auto) 1 0-10 % Neutrophils # (Auto) 5.0 1.8-7.8 10^3/uL Lymphocytes # (Auto) 1.9 1.0-4.0 10^3/uL Monocytes # (Auto) 0.5 0.0-1.0 10^3/uL Eosinophils # (Auto) 0.1 0.0-0.3 10^3/uL Basophils # (Auto) 0.1 0.0-0.1 10^3/uL Immature Granulocyte # (Auto) 0.0 0.0-0.1 10^3/uL Prothrombin Time 13.2 12.2-14.7 SEC INR Comment 1.0 0.8-1.4 Activated Partial Thromboplast Time 27 24-35 SEC Sodium Level 141 135-145 MMOL/L Potassium Level 3.9 3.6-5.0 MMOL/L Chloride Level 106 98-107 MMOL/L Carbon Dioxide Level 24 21-32 MMOL/L Anion Gap 11 5-14 MMOL/L Blood Urea Nitrogen 22 H 7-18 MG/DL Creatinine 0.97 0.60-1.30 MG/DL Estimat Glomerular Filtration Rate 63 BUN/Creatinine Ratio 23 Glucose Level 98 70-105 MG/DL Calcium Level 9.2 8.5-10.1 MG/DL Corrected Calcium 8.9 8.5-10.1 MG/DL Magnesium Level 2.1 1.6-2.4 MG/DL Total Bilirubin 0.6 0.1-1.0 MG/DL Aspartate Amino Transf (AST/SGOT) 18 5-34 U/L Alanine Aminotransferase (ALT/SGPT) 18 0-55 U/L Alkaline Phosphatase 75 40-136 U/L Myoglobin 33.9 10.0-92.0 NG/ML Troponin I < 0.028 < 0.028 <0.028 NG/ML B-Type Natriuretic Peptide 41.5 <100.0 PG/ML Total Protein 7.0 6.4-8.2 GM/DL Albumin 4.4 3.2-4.5 GM/DL Lipase 22 8-78 U/L (JAKE KU MD) Vital Signs/I&O 07/20/23 07/20/23 17:05 20:40 Temp 36.3 Pulse 70 66 Resp 24 20 B/P (MAP) 204/106 (138) 180/86 Pulse Ox 96 97 O2 Delivery Room Air Room Air (JAKE KU MD) Comment Sinus rhythm, voltage criteria for LVH, 67 bpm, QRS duration 81 MS, QTc 388 Ms. (SALVATORE NI) Departure Communication (PCP) Differential diagnosis, GERD, ACS, pericarditis, pneumonia. Patient with left- sided chest pain described as burning. No shortness of breath nausea vomiting or diarrhea. Patient Was not eating at the time. Generalized abdominal discomfort. She has no chest wall tenderness. EKG was obtained which showed normal sinus rhythm. She was hypertensive here 204/106. Recommended sublingual nitro. She refused as she states this causes head pain. If cardiac this would help with her pain as well as her blood pressure. She once again refused. She wanted a GI cocktail as she had similar type pain in the past. GI cocktail did improve some of her pain. EKG without evidence of ST elevation or depression, arrhythmia. General lab work was grossly unremarkable. Normal troponin and BNP. She was not tachycardic or hypoxic. She had a cardiac stress test performed in March 2023 which did not note any significant ischemia. She received a full aspirin. She started having pain again and refused nitro. Did give her a dose of morphine with improvement. Soft abdomen without any tenderness. Patient is eager to leave. Due to reassuring cardiac work-up, improvement of pain and recent unremarkable stress patient will be discharge with strict return precautions. Discussed outpatient follow-up with your business systems analyst within the next few days. If any worsening symptoms return back to ED. she did remain hypertensive. She refused anything for her blood pressure. Discussed with patient that her elevated blood pressure could be result of her pain. She states this does not feel cardiac. Suggest starting antiacid and or a PPI. Avoiding fatty foods. Avoid laying down flat at night. Avoid eating late at night. Return precaution were discussed (SALVATORE NI) Impression Primary Impression: Chest pain Disposition: 01 HOME, SELF-CARE Condition: Stable Departure-Patient Inst. Decision time for Depature: 20:17 (SALVATORE NI) Referrals: DEBBIE JAMISON MD FACP FAC CCDS CECILIA VERDIN APRN (PCP) Primary Care Physician Patient Instructions: Chest Pain (DC) Add. Discharge Instructions: Recommend outpatient follow-up with your business systems analyst. If any worsening symptoms return back to ED. Recommend taking your blood pressure medication. All discharge instructions reviewed with patient and/or family. Voiced understanding. ATTENDING PHYSICIAN NOTE: I was physically present as attending physician in the emergency department during the care of this patient, but I was not directly involved in the decision making or delivery of care for this patient. (JAKE KU MD) SALVATORE NI Jul 20, 2023 17:19 JAKE KU MD Jul 22, 2023 13:00
[2023-07-20 17:20] LABS: BASOPHILS # (AUTO) 0.1 10^3/uL (0.0-0.1); BASOPHILS % (AUTO) 1 % (0-10); EOSINOPHILS # (AUTO) 0.1 10^3/uL (0.0-0.3); EOSINOPHILS % (AUTO) 1 % (0-10); HEMATOCRIT 41 % (35-52); HEMOGLOBIN 13.3 g/dL (11.5-16.0); LYMPHOCYTES # (AUTO) 1.9 10^3/uL (1.0-4.0); LYMPHOCYTES % (AUTO) 24 % (12-44); MEAN CORPUSCULAR HEMOGLOBIN 29 pg (25-34); MEAN CORPUSCULAR HGB CONC 32 g/dL (32-36); MEAN CORPUSCULAR VOLUME 91 fL (80-99); MEAN PLATELET VOLUME 10.8 fL (9.0-12.2); MONOCYTES # (AUTO) 0.5 10^3/uL (0.0-1.0); MONOCYTES % (AUTO) 7 % (0-12); NEUTROPHILS % (AUTO) 66 % (42-75); PLATELET COUNT 179 10^3/uL (130-400); WHITE BLOOD COUNT 7.6 10^3/uL (4.3-11.0)
--- NOTE | 2023-07-20 17:29 | Diagnostic Imaging Report ---
EXAMINATION: Chest, one view. HISTORY: Chest pain radiating to the back. COMPARISON: 10/15/2022. FINDINGS: The lung volumes are normal. No focal consolidation is seen. No large pleural effusion or pneumothorax is seen. The cardiomediastinal silhouette is prominent. No acute osseous abnormality is seen. IMPRESSION: 1. Mild cardiomegaly. No overt pulmonary edema. Dictated by: Dictated on workstation # [id number]
[2023-07-20 17:33] LABS: ALBUMIN 4.4 GM/DL (3.2-4.5); CHLORIDE 106 MMOL/L (98-107); POTASSIUM 3.9 MMOL/L (3.6-5.0); SODIUM 141 MMOL/L (135-145)
[2023-07-20 17:35] LABS: CALCIUM 9.2 MG/DL (8.5-10.1)
[2023-07-20 17:36] LABS: GLUCOSE 98 MG/DL (70-105)
[2023-07-20 17:37] LABS: CARBON DIOXIDE 24 MMOL/L (21-32); PROTHROMBIN TIME PATIENT 13.2 SEC (12.2-14.7)
[2023-07-20 17:38] LABS: BILIRUBIN,TOTAL 0.6 MG/DL (0.1-1.0)
[2023-07-20 17:39] LABS: ALKALINE PHOSPHATASE 75 U/L (40-136); CREATININE SERUM 0.97 MG/DL (0.60-1.30); GFR ESTIMATED 63
[2023-07-20 17:40] LABS: BUN/CREATININE RATIO 23
[2023-07-20 17:42] LABS: ALANINE AMINOTRANSFERASE 18 U/L (0-55); MAGNESIUM 2.1 MG/DL (1.6-2.4)
[2023-07-20 17:43] LABS: LIPASE 22 U/L (8-78)
[2023-07-20] MEDS ORDERED: morphine INJ 10 MG/ML 1ML (SYR OR VIAL) IVP ONE (18:45)
[2023-07-20 20:40] VITALS: BP 180/86
== END 2023-07-20 20:43 | disposition home or self-care (01) ==
LOC: EDUNIT# 17:02 → ER 17:05
DX: R07.89 Other chest pain (principal); R10.84 Generalized abdominal pain; I10 Essential (primary) hypertension; Z90.49 Acquired absence of other specified parts of digestive tract; Z79.899 Other long term (current) drug therapy
CPT/HCPCS: 36415; 71045; 80053; 83690; 83735; 83874; 83880; 84484; 85025; 85610; 85730; 93005; 93041